=== PATIENT | female | born 1990 | race Caucasian/White ===

== ENCOUNTER → 2021-04-25 | Outpatient (CLI) | payer OTHER ==
--- NOTE | 2021-04-25 16:59 | RAD ---
EXAM: 1. BILATERAL DIGITAL 3-D DIAGNOSTIC MAMMOGRAPHY. 2. LEFT BREAST ULTRASOUND. HISTORY: Left breast pain. Sporadic left nipple discharge. TECHNIQUE: Bilateral full field digital images were obtained in CC and MLO projections with tomosynth esis. Computer-aided detection was applied. Sonography of the left breast was also performed. COMPARISON: None available. This is interpreted as a baseline study. COMPOSITION: D. The breasts are extremely dense, which lowers the sensitivity of mammography. FINDINGS: On the left, there is no clear mammographic correlate for breast tenderness or nipple disch arge. Sonographically in the subareolar region, there are no dilated ducts or intraductal mass. At th e site of pain at the 3:00 position, an incidental 2.5 mm cyst appears benign. There is no clear melinda elate for pain. Images of the left axilla reveal no pathologic-appearing lymph nodes. There are no steven spicious masses, microcalcifications or architectural distortion. BI-RADS CATEGORY 2: Benign. RECOMMENDATION: 1. Ongoing clinical follow-up of breast tenderness and nipple discharge. 2. Begin screening mammography at age 40 or as otherwise indicated. If mammography demonstrates dense breast tissue (heterogenously dense or extremely dense, category C or D), which could hide abnormalities, and if other risk factors for breast cancer have been identifi ed, supplemental screening tests that may be suggested by the ordering physician may be of benefit. D ense breast tissue, in and of itself, is a relatively common condition. Therefore, this information i s not provided to cause undue concern, but rather to raise awareness and to promote discussion with t he referring physician regarding the presence of other risk factors, in addition to dense breast tiss ue. The results of this mammography examination is provided to the patient and referring physician. T he patient should contact their referring physician if any questions or concerns exist regarding this report. PQRS compliance statement - Patient information was entered into a reminder system with a target due date for the next mammogram. "Our facility is accredited by the [employer] Mammography [employer]." Electronically signed by: Mu Barriga MD (04/25/2021 4:56 PM) [id number]
== END ==
LOC: MAMMO 14:06
PROVIDERS: ATTEND Registered Nurse Maternal Newborn
DX: N64.4 Mastodynia (principal); N64.52 Nipple discharge
CPT/HCPCS: 76642; 77066